=== PATIENT | male | born 1985 | race Caucasian/White ===

== ENCOUNTER 2016-09-23 11:30 | Emergency (ER) | payer OTHER ==
[2016-09-23 11:36] VITALS: TEMP 98; BMI 42.0
--- NOTE | 2016-09-23 12:23 | PDOC ---
History of Present Illness - General Chief Complaint: Lightheaded Stated Complaint: VERTIGO, DIZZINESS Time Seen by Provider: 09/23/16 11:53 - History of Present Illness Initial Comments: 09/23/16 12:20 CHIEF COMPLAINT: dizziness HISTORY OF PRESENT ILLNESS: 30 yo M with no significant past medical history presents to ED with lightheadedness. Patient states that about 2 weeks ago he started feeling pain and ringing in the left ear. Over the last 3 or 4 days he has had "some sort of cold symptoms "including sore throat stuffiness and fever. Yesterday he felt that he might have gotten up too quickly and he felt the room was spinning. He felt very dizzy and then vomited about 6 times and feels as if he can't walk in a straight line. Patient reports that now his right ear is kind of bothering him as well. No recent travel or sick contacts. PAST MEDICAL HISTORY: Denies past medical history FAMILY HISTORY: Denies SOCIAL HISTORY: Lives at home with mother and father. Occupation: [employer]. Denies tobacco, alcohol, illicit drug use. SURGICAL HISTORY: Denies ALLERGIES: No known drug allergies REVIEW OF SYSTEMS General/Constitutional: Denies fever or chills. Denies weakness, weight change. HEENT: Denies change in vision. Denies ear pain or discharge. Denies sore throat. Cardiovascular: Denies chest pain or shortness of breath. Respiratory: Denies cough, wheezing, or hemoptysis. Gastrointestinal: Denies nausea, vomiting, diarrhea or constipation. Denies rectal bleeding. Genitourinary: Denies dysuria, frequency, or change in urination. Musculoskeletal: Denies joint or muscle swelling or pain. Denies neck or back pain. Skin and breasts: Denies rash or easy bruising. Neurologic: Dizziness. Denies headache, loss of consciousness, or loss of sensation. PHYSICAL EXAM General Appearance: Well-appearing, appropriately dressed. No apparent distress , no intoxication. HEENT: EOMI, PERRLA, normal ENT inspection, normal voice, TMs normal, pharynx normal. No conjunctival pallor. No photophobia, scleral icterus. Neck: Supple. Trachea midline. No tenderness, rigidity, carotid bruit, stridor , lymphadenopathy, or thyromegaly. Respiratory/Chest: Lungs CTAB. Cardiovascular: RRR. S1, S2. Musculoskeletal/Extremities: Normal inspection. FROM of all extremities, normal capillary refill. Pelvis Stable. No CVA tenderness. No tenderness to extremities, pedal edema, swelling, erythema or deformity. Integumentary: Appropriate color, dry, warm. No cyanosis, erythema, jaundice or rash Neurologic: solutions analyst II-XII intact. Fully oriented, alert. Appropriate mood/affect. Motor strength 5/5. No appreciable EOM palsy, facial droop or sensory deficit. Past History - Past Medical History Allergies/Adverse Reactions: Allergies Allergy/AdvReac Type Severity Reaction Status Date / Time No Known Allergies Allergy Verified 09/23/16 11:36 Home Medications: Ambulatory Orders Meclizine HCl 25 mg PO BID PRN #10 tablet 09/23/16 HTN: Yes - Psycho/Social/Smoking Cessation Hx Anxiety: No Suicidal Ideation: No Smoking History: Never smoked Hx Alcohol Use: No Drug/Substance Use Hx: No Substance Use Type: None *Physical Exam - Vital Signs Last Vital Signs Temp Pulse Resp BP Pulse Ox 98.0 F 100 H 20 158/101 99 09/23/16 11:34 09/23/16 11:34 09/23/16 11:34 09/23/16 11:34 09/23/16 11:34 Medical Decision Making - Medical Decision Making 09/23/16 12:23 30 yo M with no significant past medical history presents to ED with vertigo. -IVF, Reglan, antivert Amarjit maneuver was performed 3 times. Patient reports resolution of symptoms. Meclizine rx sent to pharmacy. Advised patient to take medication as prescribed and f/u up PMD. Advised patient of signs and symptoms for return to ED; patient verbalized understanding and agrees to plan. *DC/Admit/Observation/Transfer Diagnosis at time of Disposition: Benign paroxysmal positional vertigo Qualifiers: Laterality: left Qualified Code(s): H81.12 - Benign paroxysmal vertigo, left ear - Discharge Dispostion Disposition: HOME Condition at time of disposition: Stable - Prescriptions Prescriptions: Meclizine HCl 25 mg PO BID PRN #10 tablet PRN Reason: Vertigo - Referrals Referrals: STAFF,NOT ON [Primary Care Provider] - - Patient Instructions Printed Discharge Instructions: DI for Benign Paroxysmal Positional Vertigo Additional Instructions: Please take medication as prescribed and follow the diagram provided for the Amarjit maneuver. If your vertigo does not improve, or you develop fever, chills , slurred speech, change in vision, weakness, or any new or worsening symptoms, please return to the ER. - Post Discharge Activity Work/School Note: Back to Work
[2016-09-23] MEDS ORDERED: MECLIZINE HCL 12.5 MG TABLET PO ONE (12:24)
[2016-09-23] MEDS ORDERED: ONDANSETRON *ODT* 4 MG TABLET SL ONE (12:24)
[2016-09-23] MEDS ORDERED: ONDANSETRON *ODT* 4 MG TABLET ONE (12:30)
[2016-09-23] MEDS ORDERED: MECLIZINE HCL 12.5 MG TABLET ONE (12:30)
[2016-09-23 13:28] VITALS: BP 138/94; PULSE 84
== END 2016-09-23 13:28 | disposition home or self-care (01) ==
LOC: EDBD 11:30 → JER 11:30
DX: H81.12 Benign paroxysmal vertigo, left ear (principal)
CPT/HCPCS: 99282-25

== ENCOUNTER 2023-12-27 06:43 | Emergency (ER) | payer OTHER ==
[2023-12-27 07:01] VITALS: BP 157/95; PULSE 93; RESP 18; TEMP 97; BMI 46.2
[2023-12-27] MEDS ORDERED: LIDOCAINE 4% PATCH TP ONE (08:21)
[2023-12-27] MEDS: LIDOCAINE 5% TOPICAL PATCH TP ONE (08:34)
[2023-12-27 09:22] LABS: EPI CELLS 1 /uL (0-25.1); HYALINE CASTS 0 /uL (0-3.1); PH,URINE 5.5 (5.0-8.0); URINE APPEARANCE CLEAR; URINE BACTERIA 0 /uL (0-1359); URINE BILIRUBIN NEGATIVE (NEGATIVE); URINE COLOR YELLOW; URINE GLUCOSE (UA) 3+ (NEGATIVE); URINE KETONE TRACE (NEGATIVE); URINE LEUK ESTERASE NEGATIVE (NEGATIVE); URINE NITRITE NEGATIVE (NEGATIVE); URINE PROTEIN NEGATIVE (NEGATIVE); URINE RBC 378 /uL (0-23.9); URINE UROBILINOGEN 0.2 mg/dL (0.2-1.0); URINE WBC 6 /uL (0-25.8)
[2023-12-27 09:22] LABS: BASO % 0.5 % (0-2.0); EOS % 0.5 % (0-4.5); HEMATOCRIT 44.4 % (35.4-49); HEMOGLOBIN 14.8 GM/dL (11.7-16.9); LYMPH % 11.6 % (8-40); MCH 26.4 pg (25.7-33.7); MCHC 33.3 g/dl (32.0-35.9); MEAN CELL VOLUME 79.4 fl (80-96); MEAN PLT VOLUME 8.3 fl (7.5-11.1); MONO % 3.4 % (3.8-10.2); PLATELET COUNT 274 10^3/uL (134-434); RBC 5.59 M/mm3 (4.00-5.60); RDW 14.2 % (11.9-15.9); WHITE BLOOD COUNT 10.2 K/mm3 (4.0-10.0)
[2023-12-27 09:32] LABS: POTASSIUM 4.1 mmol/L (3.5-5.1)
[2023-12-27 09:34] LABS: BLOOD UREA NITROGEN 17.4 mg/dL (7-18); CALCIUM 9.2 mg/dL (8.5-10.1)
[2023-12-27 09:39] LABS: BILIRUBIN,TOTAL 0.5 mg/dL (0.2-1); TOT PROT 7.3 g/dl (6.4-8.2)
[2023-12-27] MEDS ORDERED: KETOROLAC TROMETHAMINE 30 MG/1 ML VIAL ONE (10:36)
[2023-12-27] MEDS: KETOROLAC TROMETHAMINE 30 MG/1 ML VIAL IM ONE (12:34)
[2023-12-27] MEDS ORDERED: LIDOCAINE PATCH REMOVAL MC SCH (22:00)
== END 2023-12-27 12:51 | disposition home or self-care (01) ==
LOC: JER 06:43
PROC: 3E0233Z Introduction of Anti-inflammatory into Muscle, Percutaneous Approach (ICD-10-PCS; principal; 2023-12-27)
DX: R10.9 Unspecified abdominal pain (principal); N21.0 Calculus in bladder
CPT/HCPCS: 36415; 74176-TC; 80053; 81003; 85025; 99284-25